=== PATIENT | female | born 1995 | race Caucasian/White ===

== ENCOUNTER 2016-11-05 11:40 | Emergency (ER) | payer BC ==
[~2016-11-05] VITALS: Ht 157.5 cm; Wt 63.6 kg
[2016-11-05 11:47] VITALS: TEMP 36.7; Ht 157.5 cm; Wt 63.6 kg
[2016-11-05] MEDS ORDERED: BCPILLS PO (12:04)
[2016-11-05] MEDS ORDERED: SERT25TA PO (12:04)
[2016-11-05] MEDS ORDERED: IBUPROFEN 200 MG TAB PO STA (12:24)
--- NOTE | 2016-11-05 12:48 | DIAGNOSTIC IMAGING REPORT ---
L-SPINE MIN 4 VIEWS ROUTINE CLINICAL HISTORY: 20 years-old Female presenting with fall off of horse, left sided back pain. TECHNIQUE: Frontal, bilateral oblique, and lateral views of the lumbar spine and coned in lateral view of the lumbosacral junction were obtained. COMPARISON: None. FINDINGS: Straightening of normal lumbar lordosis, likely positional. Vertebral body heights and intervertebral disc spaces preserved. No radiographic evidence of acute fracture or subluxation. No significant degenerative change. Moderate stool burden. No gross pneumoperitoneum. IMPRESSION: Straightening of normal lumbar lordosis, likely positional. Otherwise normal lumbar spine. Electronically signed by: Jonn Pires M.D. 11/05/2016 12:47 PM Dictated Date/Time: 11/05/2016 12:46 PM
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
[2016-11-05 14:13] VITALS: BP 117/71; PULSE 86; O2SAT 99
== END 2016-11-05 14:14 | disposition home or self-care (01) ==
LOC: C.EDB 11:42 → C.EDD 14:14
DX: S30.0XXA Contusion of lower back and pelvis, initial encounter (principal); V80.010A Animal-rider injured by fall from or being thrown from horse in noncollision accident, initial encounter; Y92.89 Other specified places as the place of occurrence of the external cause; Z79.3 Long term (current) use of hormonal contraceptives; Z79.899 Other long term (current) drug therapy